=== PATIENT | male | born 1950 | race African-American/Black ===

== ENCOUNTER 2018-10-21 22:07 | Emergency (ER) | payer MEDICARE, MEDICAID ==
[~2018-10-21] VITALS: Ht 185.4 cm; Wt 53.8 kg
[~2018-10-21 22:07] MED LIST: NO HOME MEDS
[2018-10-21 22:17] VITALS: BP 157/94
== END 2018-10-22 02:22 | disposition home or self-care (01) ==
LOC: ER 22:07
DX: Z00.00 Encounter for general adult medical examination without abnormal findings (principal)
CPT/HCPCS: 99284

== ENCOUNTER 2018-10-28 12:21 | Inpatient (IN) | payer MEDICARE, MEDICAID ==
[~2018-10-28] VITALS: Ht 167.6 cm; Wt 59.8 kg
[2018-10-28 13:45] LABS: CLARITY,URINE CLEAR (Clear); COLOR,URINE YELLOW (Yellow); GLUCOSE, URINE NEGATIVE (Neg); KETONES,URINE NEGATIVE (Neg); LEUKOCYTE ESTERASE ,URINE SMALL (Neg); NITRITES, URINE NEGATIVE (Neg); OCCULT BLOOD,URINE TRACE-INTACT (Neg); PROTEIN,URINE NEGATIVE (Neg); UROBILINOGEN,URINE 0.2 E.U/dL (0.2-1.0)
[2018-10-28 13:48] LABS: UA COLLECTION TYPE CLN CATCH MIDSTREAM
[2018-10-28 13:54] LABS: SQUAMOUS EPITHELIAL CELL,UR FEW /LPF (FEW)
[2018-10-28 13:57] LABS: BACTERIA,URINE FEW /HPF (Neg); TRANSITIONAL EPI CELLS,URINE FEW /HPF; WBC CLUMPS,URINE FEW /HPF (NEGATIVE)
[2018-10-28 14:06] LABS: URINE AMPHETAMINE SCREEN NEGATIVE (Neg); URINE BARBITUATE SCREEN NEGATIVE (Neg); URINE BENZODIAZEPINES SCREEN NEGATIVE (Neg); URINE CANNABINOID SCREEN NEGATIVE (Neg); URINE COCAINE SCREEN NEGATIVE (Neg); URINE METHADONE SCREEN NEGATIVE (Neg); URINE OPIATE SCREEN NEGATIVE (Neg); URINE PHENCYCLIDINE SCREEN NEGATIVE (Neg)
[2018-10-28 14:30] LABS: BASOPHILS % (AUTO) 0.5 % (0-1); EOSINOPHILS % (AUTO) 0.6 % (0-6); HEMATOCRIT 36.7 % (42.0-52.0); HEMOGLOBIN 12.2 g/dl (14.0-17.9); LYMPHOCYTES # (AUTO) 0.6 X10'3 (1.1-4.8); LYMPHOCYTES % (AUTO) 7.2 % (21-51); MEAN CORPUSCULAR HEMOGLOBIN 31.8 PG (27.0-31.0); MEAN CORPUSCULAR HGB CONC 33.2 g/dL (33.0-36.5); MEAN CORPUSCULAR VOLUME 95.9 FL (78-98); MEAN PLATELET VOLUME 7.2 FL (7.4-10.4); MONOCYTES # (AUTO) 0.9 X10'3 (0-0.9); MONOCYTES % (AUTO) 10.1 % (2-12); NEUTROPHILS # (AUTO) 7.2 X10'3 (1.8-7.7); NEUTROPHILS % (AUTO) 81.6 % (42-75); PLATELET COUNT 401 X10'3 (140-440); RED BLOOD COUNT 3.83 X10'6 (4.70-6.10); RED CELL DISTRIBUTION WIDTH 15.3 % (11.5-14.5); WHITE BLOOD COUNT 8.8 X10'3 (4.5-11.0)
[2018-10-28 14:41] LABS: ALANINE AMINOTRANSFERASE 38 U/L (12-78); ALBUMIN 2.4 G/DL (3.4-5.0); ALBUMIN/GLOBULIN RATIO 0.5 (1.1-1.5); ALKALINE PHOSPHATASE 122 IU/L (46-116); ANION GAP 1 (8-16); ASPARTATE AMINO TRANSFERASE 32 U/L (10-37); BILIRUBIN,TOTAL 0.6 MG/DL (0.1-1.0); BLOOD UREA NITROGEN 11 MG/DL (7-18); BUN/CREATININE RATIO 14.9 (5.4-32.0); CALCIUM 8.1 MG/DL (8.5-10.1); CHLORIDE 104 MMOL/L (99-107); CREATININE 0.74 MG/DL (0.60-1.10); ETHANOL < 0.010 GM/DL (0.0-0.010); GLUCOSE 76 MG/DL (70-104); SODIUM 144 MMOL/L (135-145); TOTAL PROTEIN 7.3 G/DL (6.4-8.2); eGFR > 90 ML/MIN
[2018-10-28] MEDS ORDERED: magnesium oxide 400mg tablet PO ONE (15:05)
[2018-10-28] MEDS ORDERED: potassium Cl 20 mEq SR tablet PO ONE (15:05)
[2018-10-28] MEDS ORDERED: levoTHYROXINE 100mcg tablet PO STA (15:09)
[2018-10-28 15:28] LABS: MAGNESIUM 1.5 MG/DL (1.5-2.4)
--- NOTE | 2018-10-28 18:44 | NUR ---
Received report from THOMAS Zepeda, assumed care. Pt. resting quietly in bed, dinner given.
--- NOTE | 2018-10-28 18:45 | NUR ---
Discussed pt's labile mood with increased agitation with Dr Lorenz. Pt appears to be responding to internal stimuli AED him talking to none present, which he denies and does not appeart to recognize is occurring. [facility] psychosocial assessment pending.
[2018-10-28] MEDS ORDERED: diphenhydrAMINE 50 mg/ml inj IM ONE (19:05)
[2018-10-28] MEDS ORDERED: OLANZapine **IM** 10 mg inj. IM ONE (19:05)
[2018-10-28] MEDS ORDERED: LORazepam 2 mg/ml vial IM ONE (19:05)
--- NOTE | 2018-10-28 21:26 | NUR ---
pt. given zyprexa IM as requested by pt. to" help him sleep". pt. is cooperative and calm, laying supine in bed with rails up and in low position. Pt. ate 20% of meal stating "I cant eat that I cant see it". Requested that meal tray be left at bedside to eat later.
--- NOTE | 2018-10-28 22:44 | NUR ---
pt resting quietly in bed with eyes closed. breathing even and unlabored. regularly wakes up and asks for urinal and states he can't see it. urinal handed to pt.
--- NOTE | 2018-10-29 02:28 | NUR ---
pt laying on right side with eyes closed. breathing even and nonlabored. will monitor.
--- NOTE | 2018-10-29 04:45 | NUR ---
pt. laying on bed with eys closed. head of bead elevated 30 degrees as pt. requests. NAD noted.
[2018-10-29] MEDS ORDERED: levoTHYROXINE 25mcg tablet PO SCH (07:00)
--- NOTE | 2018-10-29 07:34 | NUR ---
PT SLEEPING, WILL NOT WAKEN FOR AM SYNTHROID DOSE, WILL GIVE WHEN PT AWAKENS
[2018-10-29] MEDS: potassium Cl 20 mEq SR tablet PO SCH (08:37)
--- NOTE | 2018-10-29 13:30 | NUR ---
pt was assisted out of bed for a bedbath and linen change, became short of breath, dyspneic. pt's o2 sat was as low as 70% on ra with a heart rate of 115. o2 placed as soon as o2 bottle was obtained, 2 lpm. sat had come up to 88-89% on ra with hr of 109. sat 93% on 2 liters o2. was notified, came to eval pt and placed orders
[2018-10-29] MEDS ORDERED: ipratropium/albuterol 3ml nebule NEB ONE (13:35)
--- NOTE | 2018-10-29 13:35 | NUR ---
pt also developed moist, non-productive cough. ambulated to foot of bed before c/o difficulty breathing, approx 4 ft
--- NOTE | 2018-10-29 14:13 | NUR ---
respiratory therapist at bedside for breathing tx, ekg being done. line was placed for cta and labs drawn
[2018-10-29] MEDS ORDERED: iohexol 350MG/ML 100ml bottle IV ONE (14:53)
--- NOTE | 2018-10-29 15:18 | NUR ---
pt back from cta scan, went via w/c, accompanied by rn. became sob with transfer to ct table
[2018-10-29] MEDS ORDERED: furosemide 10 MG/1 ML 10ml inj IV ONE (15:50)
--- NOTE | 2018-10-29 15:55 | NUR ---
pt is to be admitted for chf, per er md. pt not cooperative with all care
[2018-10-29] MEDS ORDERED: POTA20TA19 PO (16:04)
[2018-10-29] MEDS ORDERED: LEVO50TA PO (16:04)
--- NOTE | 2018-10-29 16:30 | NUR ---
pt voiding 100-150 cc at a time. bladder scan done to r/o retention, residual was 155 cc after 125 cc void.
--- NOTE | 2018-10-29 17:16 | NUR ---
dr macias was in to see pt, was notified of bladder scan results. pt being admitted, awaiting orders
--- NOTE | 2018-10-29 17:17 | NUR ---
it help desk technician was at bedside to attempt echo, but pt would not be still long enough to do test, voiding very frequently . echo will be attempted again in the am
[2018-10-29 17:24] LABS: POTASSIUM 3.8 MMOL/L (3.5-5.1)
[2018-10-29 17:30] LABS: ABG BASE EXCESS 11.7 mmol/L (-2.0-3.0); ABG HCO3 38.1 mmol/L (22.0-26.0); ABG OXYGEN SATURATION 88.4 % (95-98); ABG PCO2 (T) 57.5 mmHg (35.0-48.0); ABG PH (T) 7.439 (7.350-7.450); ABG PO2 (T) 53.5 mmHg (83-108); ALLEN'S TEST Positive; FCOHb 2.1 % (0.5-1.5); FLOW 2 L/min; FMetHb 0.1 % (0.3-1.12); FO2Hb 86.5 % (94-100); TOTAL HEMOGLOBIN 13.3 G/dl (14.0-18.0)
[2018-10-29] MEDS ORDERED: potassium Cl 20 mEq SR tablet PO PRN ×2 (17:40)
[2018-10-29] MEDS ORDERED: ondansetron/PF 4mg/2ml inj IV PRN (17:40)
[2018-10-29] MEDS ORDERED: potassium Cl 40MEQ/NS 500ml 500 ML IV PRN ×2 (17:40)
[2018-10-29] MEDS ORDERED: morphine 4 MG/ML inj SYRINge IV PRN (17:40)
[2018-10-29] MEDS ORDERED: magnesium 2GM in 50ml NS 50 ML IV PRN (17:40)
[2018-10-29] MEDS ORDERED: acetaminophen 325mg tablet PO PRN ×2 (17:40)
[2018-10-29] MEDS ORDERED: magnesium 4gm in 100ml NS 100 ML IV PRN (17:40)
[2018-10-29] MEDS ORDERED: magnesium hydroxide 30ml (MOM) UD suspension PO PRN (17:40)
[2018-10-29] MEDS ORDERED: magnesium Cl slow-release 64mg tablet PO PRN (17:40)
[2018-10-29] MEDS ORDERED: mag hydrox/Alum hydrox/simeth 30ml oral suspension PO PRN (17:40)
[2018-10-29] MEDS: hydrocortisone 2.5% cream 28.4gm TP SCH (19:44)
[2018-10-29] MEDS: heparin, porcine 5000 units/ml vial SQ SCH (19:46)
--- NOTE | 2018-10-29 19:56 | NUR ---
pt resting in bed on 2liters of oxygen. no s/s of distress or pain. pt refused heparin dose. education printed and at bedside. pt accepted cream to leg. pt educated on the importance of heparin, and still pt refused.
[2018-10-29] MEDS ORDERED: albuterol 2.5 MG/3 ML nebule NEB SCH (20:00)
--- NOTE | 2018-10-29 20:36 | NUR ---
PT MOVED TO BED 10 IN MAIN ED WHILE AWAITING ROOM. PT MOVED IN WHEELCHAIR BY GIRMA ESPARZA.
--- NOTE | 2018-10-29 20:40 | NUR ---
PT PLACED ON HOSPITAL BED FOR COMFORT
--- NOTE | 2018-10-30 01:25 | NUR ---
Discussed Albuterol Neb order with Dr Presley as pt is asleep. Per MD change order to Q4H PRN to start @ 0700 to allow pt much needed sleep.
[2018-10-30] MEDS ORDERED: albuterol 2.5 MG/3 ML nebule NEB PRN (07:00)
[2018-10-30] MEDS: levoTHYROXINE 25mcg tablet PO SCH (07:30)
[2018-10-30] MEDS: potassium Cl 20 mEq SR tablet PO SCH (07:31)
[2018-10-30] MEDS: heparin, porcine 5000 units/ml vial SQ SCH ×2 (07:36→19:56)
[2018-10-30] MEDS: CefTRIAXone 2gm/D5W 50ml 50 ML IV SCH (07:37)
[2018-10-30] MEDS ORDERED: non-formulary drug (Levothyroxine Sodium (Synthroid) 1 TAB) PO SCH (08:00)
[2018-10-30 08:10] LABS: BASOPHILS # (AUTO) 0.1 X10'3 (0-0.2); BASOPHILS % (AUTO) 1.4 % (0-1); EOSINOPHILS # (AUTO) 0.2 X10'3 (0-0.9); EOSINOPHILS % (AUTO) 2.6 % (0-6); HEMATOCRIT 36.9 % (42.0-52.0); HEMOGLOBIN 11.9 g/dl (14.0-17.9); LYMPHOCYTES # (AUTO) 1.4 X10'3 (1.1-4.8); LYMPHOCYTES % (AUTO) 21.6 % (21-51); MEAN CORPUSCULAR HEMOGLOBIN 31.4 PG (27.0-31.0); MEAN CORPUSCULAR HGB CONC 32.3 g/dL (33.0-36.5); MEAN CORPUSCULAR VOLUME 97.3 FL (78-98); MONOCYTES % (AUTO) 15.1 % (2-12); NEUTROPHILS # (AUTO) 3.8 X10'3 (1.8-7.7); NEUTROPHILS % (AUTO) 59.3 % (42-75); PLATELET COUNT 430 X10'3 (140-440); RED BLOOD COUNT 3.79 X10'6 (4.70-6.10); RED CELL DISTRIBUTION WIDTH 15.8 % (11.5-14.5); WHITE BLOOD COUNT 6.5 X10'3 (4.5-11.0)
[2018-10-30 08:14] LABS: ALBUMIN 2.2 G/DL (3.4-5.0); ANION GAP -1 (8-16); BLOOD UREA NITROGEN 14 MG/DL (7-18); BUN/CREATININE RATIO 18.2 (5.4-32.0); CALCIUM 8.1 MG/DL (8.5-10.1); CHLORIDE 104 MMOL/L (99-107); CREATININE 0.77 MG/DL (0.60-1.10); GLUCOSE 89 MG/DL (70-104); MAGNESIUM 1.4 MG/DL (1.5-2.4); POTASSIUM 3.3 MMOL/L (3.5-5.1); SODIUM 143 MMOL/L (135-145); TOTAL CARBON DIOXIDE 39.8 MMOL/L (24-32); eGFR > 90 ML/MIN
--- NOTE | 2018-10-30 10:10 | NUR ---
PT WHEEZING RT CALLED FOR TX
--- NOTE | 2018-10-30 12:41 | NUR ---
pt pulled iv out.
[2018-10-30] MEDS ORDERED: POTA20TA19 PO (14:36)
[2018-10-30] MEDS ORDERED: HYDR453.3 TP (14:36)
[2018-10-30] MEDS ORDERED: LEVO50TA PO (14:36)
--- NOTE | 2018-10-30 18:13 | NUR ---
Received report from THOMAS Gallegos and THOMAS Heart. Patient pulled IV out at 1241 earlier today. THOMAS Heart said she will try putting an IV in before bringing patient up. Awaiting patient arrival to the floor.
[2018-10-30] MEDS: hydrocortisone 2.5% cream 28.4gm TP SCH ×2 (18:43→19:56)
[2018-10-30] MEDS: K and/or MAG REPLACEMENT MC SCH (18:43)
[2018-10-30 19:00] VITALS: BP 129/71
--- NOTE | 2018-10-30 19:00 | NUR ---
Patient arrived to the floor via bed, placed in room 356B. Patient is awake and alert on 2 L NC, in no apparent distress. Call light and items of frequent use within reach. Will continue to monitor.
[2018-10-30] MEDS: lactobacillus rhamnosus 10,000 MMU CELLS/CAPSULE PO SCH (19:55)
--- NOTE | 2018-10-30 20:25 | NUR ---
Patient refused orthostatic vitals. Stated "I cant stand up! Leave me alone."
--- NOTE | 2018-10-30 21:48 | NUR ---
Patient refused to allow respiratory assessment. No service provided.
--- NOTE | 2018-10-30 22:17 | NUR ---
Patient refused to answer DART questions; stated "This is my sleep time. I need to be left alone."
[2018-10-31] VITALS: BP 102/64
[2018-10-31] MEDS: temazepam 15mg capsule PO PRN (01:31)
--- NOTE | 2018-10-31 04:45 | NUR ---
Attempted to perform nasal swab and DART process - swung arms at me and refused to cooperate.
[2018-10-31 05:17] LABS: BASOPHILS # (AUTO) 0.1 X10'3 (0-0.2); BASOPHILS % (AUTO) 1.1 % (0-1); EOSINOPHILS # (AUTO) 0.1 X10'3 (0-0.9); EOSINOPHILS % (AUTO) 2.4 % (0-6); HEMATOCRIT 34.5 % (42.0-52.0); HEMOGLOBIN 11.3 g/dl (14.0-17.9); LYMPHOCYTES # (AUTO) 1.4 X10'3 (1.1-4.8); LYMPHOCYTES % (AUTO) 24.8 % (21-51); MEAN CORPUSCULAR HEMOGLOBIN 31.7 PG (27.0-31.0); MEAN CORPUSCULAR HGB CONC 32.8 g/dL (33.0-36.5); MEAN CORPUSCULAR VOLUME 96.6 FL (78-98); MEAN PLATELET VOLUME 7.3 FL (7.4-10.4); MONOCYTES # (AUTO) 0.9 X10'3 (0-0.9); NEUTROPHILS # (AUTO) 3.2 X10'3 (1.8-7.7); NEUTROPHILS % (AUTO) 55.7 % (42-75); PLATELET COUNT 393 X10'3 (140-440); RED BLOOD COUNT 3.56 X10'6 (4.70-6.10); RED CELL DISTRIBUTION WIDTH 15.6 % (11.5-14.5); WHITE BLOOD COUNT 5.7 X10'3 (4.5-11.0)
[2018-10-31 05:28] LABS: ALBUMIN 2.3 G/DL (3.4-5.0); ANION GAP -2 (8-16); BLOOD UREA NITROGEN 19 MG/DL (7-18); BUN/CREATININE RATIO 24.4 (5.4-32.0); CHLORIDE 103 MMOL/L (99-107); CREATININE 0.78 MG/DL (0.60-1.10); GLUCOSE 97 MG/DL (70-104); MAGNESIUM 2.1 MG/DL (1.5-2.4); SODIUM 139 MMOL/L (135-145); TOTAL CARBON DIOXIDE 37.8 MMOL/L (24-32); eGFR > 90 ML/MIN
--- NOTE | 2018-10-31 06:24 | NUR ---
Problems reprioritized. Patient report given, questions answered & plan of care reviewed with THOMAS Shell.
--- NOTE | 2018-10-31 06:35 | NUR ---
Patient in room [facility]ELV[facility] 356. I have received report from Sumaya and had the opportunity to ask questions and assume patient care.
[2018-10-31 08:00] VITALS: BP 113/73
[2018-10-31] MEDS: K and/or MAG REPLACEMENT MC SCH (08:00)
[2018-10-31] MEDS: levoTHYROXINE 25mcg tablet PO SCH (08:14)
[2018-10-31] MEDS: potassium Cl 20 mEq SR tablet PO SCH (08:16)
[2018-10-31] MEDS: lactobacillus rhamnosus 10,000 MMU CELLS/CAPSULE PO SCH ×2 (08:16→20:07)
[2018-10-31] MEDS: heparin, porcine 5000 units/ml vial SQ SCH ×2 (08:18→20:07)
[2018-10-31] MEDS: hydrocortisone 2.5% cream 28.4gm TP SCH ×2 (08:19→20:00)
[2018-10-31] MEDS: CefTRIAXone 2gm/D5W 50ml 50 ML IV SCH (10:33)
[2018-10-31] MEDS: OLANZapine 2.5MG tablet PO SCH ×2 (11:40→16:44)
--- NOTE | 2018-10-31 12:18 | NUR ---
Problems reprioritized. Patient report given, questions answered & plan of care reviewed with
--- NOTE | 2018-10-31 12:22 | NUR ---
Student documentation: I have reviewed and agree with all interventions, assessments performed and documented by Wendy, nursing service administrator.
--- NOTE | 2018-10-31 12:22 | NUR ---
Student Medication Administration: For this medication-pass time frame, all medication were reviewed, dispensed, administered and documented per hospital policy by vira Nguyen.
--- NOTE | 2018-10-31 14:21 | NUR ---
Positive blood cultures right hand gram positive cocci and clusters. Page sent to Dr Daugherty.
--- NOTE | 2018-10-31 14:23 | NUR ---
Patient refused zyprexa earlier, Dr Daugehrty paged with this information. Patient yells at times.
[2018-10-31] MEDS ORDERED: OLANZapine **IM** 10 mg inj. IM PRN (17:25)
[2018-10-31] MEDS ORDERED: LORazepam 2 mg/ml vial IV PRN (17:25)
--- NOTE | 2018-10-31 18:00 | NUR ---
Problems reprioritized. Patient report given, questions answered & plan of care reviewed with Mary Jane GUZMAN
--- NOTE | 2018-10-31 18:05 | NUR ---
Received report from THOMAS Shell. Patient is resting comfortably on room air, in no apparent distress. Call light and items of frequent use within reach. Will continue to monitor.
--- NOTE | 2018-10-31 19:20 | NUR ---
Refused respiratory assessment.
[2018-10-31 20:00] VITALS: BP 110/70
--- NOTE | 2018-10-31 20:35 | NUR ---
Patient pulled IV out within 10 minutes of putting one in; and said "I don't want this fucking thing."
[2018-11-01] VITALS: BP 128/80
[2018-11-01 05:56] LABS: BASOPHILS % (AUTO) 0.2 % (0-1); EOSINOPHILS # (AUTO) 0.1 X10'3 (0-0.9); EOSINOPHILS % (AUTO) 2.5 % (0-6); HEMATOCRIT 33.8 % (42.0-52.0); HEMOGLOBIN 11.5 g/dl (14.0-17.9); LYMPHOCYTES # (AUTO) 1.4 X10'3 (1.1-4.8); LYMPHOCYTES % (AUTO) 26.9 % (21-51); MEAN CORPUSCULAR HEMOGLOBIN 32.6 PG (27.0-31.0); MEAN CORPUSCULAR HGB CONC 34.2 g/dL (33.0-36.5); MEAN CORPUSCULAR VOLUME 95.5 FL (78-98); MEAN PLATELET VOLUME 7.4 FL (7.4-10.4); NEUTROPHILS # (AUTO) 2.8 X10'3 (1.8-7.7); NEUTROPHILS % (AUTO) 52.4 % (42-75); PLATELET COUNT 395 X10'3 (140-440); RED BLOOD COUNT 3.54 X10'6 (4.70-6.10); RED CELL DISTRIBUTION WIDTH 15.6 % (11.5-14.5); WHITE BLOOD COUNT 5.3 X10'3 (4.5-11.0)
[2018-11-01 06:03] LABS: ALBUMIN 2.3 G/DL (3.4-5.0); ANION GAP 2 (8-16); BLOOD UREA NITROGEN 17 MG/DL (7-18); BUN/CREATININE RATIO 23.3 (5.4-32.0); CALCIUM 8.4 MG/DL (8.5-10.1); CHLORIDE 104 MMOL/L (99-107); CREATININE 0.73 MG/DL (0.60-1.10); GLUCOSE 106 MG/DL (70-104); MAGNESIUM 1.7 MG/DL (1.5-2.4); POTASSIUM 4.2 MMOL/L (3.5-5.1); SODIUM 140 MMOL/L (135-145); TOTAL CARBON DIOXIDE 34.5 MMOL/L (24-32); eGFR > 90 ML/MIN
--- NOTE | 2018-11-01 06:40 | NUR ---
Patient in room [facility] 356. I have received report from Mary Jane GUZMAN and had the opportunity to ask questions and assume patient care.
--- NOTE | 2018-11-01 06:42 | NUR ---
Problems reprioritized. Patient report given, questions answered & plan of care reviewed with THOMAS Spears and Marck Student Nurse.
--- NOTE | 2018-11-01 07:00 | NUR ---
Patient pulled IV out on third shift lieutenant. Patient refusing to have IV placed. MD paged to notify. Awaiting call back.
[2018-11-01 07:06] VITALS: BP 133/87
[2018-11-01] MEDS: K and/or MAG REPLACEMENT MC SCH (07:17)
[2018-11-01] MEDS: lactobacillus rhamnosus 10,000 MMU CELLS/CAPSULE PO SCH ×2 (07:31→20:22)
[2018-11-01] MEDS: levoTHYROXINE 25mcg tablet PO SCH (07:31)
[2018-11-01] MEDS: potassium Cl 20 mEq SR tablet PO SCH (07:31)
[2018-11-01] MEDS: HYDROcodone/acetaminophen 5mg/325mg tablet PO PRN ×3 (07:31→20:21)
[2018-11-01] MEDS: heparin, porcine 5000 units/ml vial SQ SCH ×2 (07:32→20:19)
[2018-11-01] MEDS: OLANZapine 2.5MG tablet PO SCH (07:32)
[2018-11-01] MEDS: CefTRIAXone 2gm/D5W 50ml 50 ML IV SCH (08:00)
[2018-11-01] MEDS: hydrocortisone 2.5% cream 28.4gm TP SCH ×2 (08:00→20:00)
--- NOTE | 2018-11-01 09:00 | NUR ---
paged again to notify of refusal of IV placement and has IV antibiotics due. Awaiting call back.
[2018-11-01] MEDS ORDERED: VANCOMYCIN 750MG IV in NS 250 ML IV SCH (10:00)
[2018-11-01 11:40] VITALS: BP 120/85
--- NOTE | 2018-11-01 11:57 | NUR ---
Dr. Hector aware of pt refusing IV placement. to speak with pt.
[2018-11-01] MEDS ORDERED: CefTRIAXone 2gm/D5W 50ml 50 ML IV ONE (13:45)
[2018-11-01] MEDS: VANCOMYCIN 750MG IV in NS 250 ML IV SCH (15:11)
--- NOTE | 2018-11-01 18:03 | NUR ---
Problems reprioritized. Patient report given, questions answered & plan of care reviewed with Mary Jane GUZMAN.
--- NOTE | 2018-11-01 18:15 | NUR ---
Patient in room [facility] 356. I have received report from Mary Jane GUZMAN and had the opportunity to ask questions and assume patient care.
--- NOTE | 2018-11-01 18:15 | NUR ---
Patient in room [facility] 356. I have received report from Mary Jane UGZMAN and had the opportunity to ask questions and assume patient care.
--- NOTE | 2018-11-01 18:22 | NUR ---
Problems reprioritized. Patient report given, questions answered & plan of care reviewed with Mary Jane GUZMAN.
--- NOTE | 2018-11-01 18:23 | NUR ---
Student documentation: I have reviewed and agree with all interventions, assessments performed and documented by Marck Student Nurse. Student Medication Administration: For this medication-pass time frame, all medication were reviewed, dispensed, administered and documented per hospital policy by Marck Bear Nurse.
--- NOTE | 2018-11-01 18:30 | NUR ---
Received report from THOMAS Spears. Patient resting comfortably with eyes closed. Reported off to THOMAS Abreu.
[2018-11-01 19:00] VITALS: BP 144/97
[2018-11-01] MEDS: temazepam 15mg capsule PO PRN (23:15)
[2018-11-02] VITALS: BP 130/83
[2018-11-02] MEDS: VANCOMYCIN 750MG IV in NS 250 ML IV SCH (01:49)
[2018-11-02] MEDS: HYDROcodone/acetaminophen 5mg/325mg tablet PO PRN ×3 (01:57→20:57)
--- NOTE | 2018-11-02 06:30 | NUR ---
Problems reprioritized. Patient report given, questions answered & plan of care reviewed with Jules Prescott.
[2018-11-02 06:45] LABS: BASOPHILS % (AUTO) 0.3 % (0-1); EOSINOPHILS # (AUTO) 0.2 X10'3 (0-0.9); EOSINOPHILS % (AUTO) 4.4 % (0-6); HEMATOCRIT 35.3 % (42.0-52.0); HEMOGLOBIN 11.7 g/dl (14.0-17.9); LYMPHOCYTES # (AUTO) 1.7 X10'3 (1.1-4.8); LYMPHOCYTES % (AUTO) 37.5 % (21-51); MEAN CORPUSCULAR HGB CONC 33.1 g/dL (33.0-36.5); MEAN CORPUSCULAR VOLUME 96.7 FL (78-98); MEAN PLATELET VOLUME 7.5 FL (7.4-10.4); MONOCYTES % (AUTO) 21.8 % (2-12); NEUTROPHILS # (AUTO) 1.7 X10'3 (1.8-7.7); PLATELET COUNT 392 X10'3 (140-440); RED BLOOD COUNT 3.65 X10'6 (4.70-6.10); RED CELL DISTRIBUTION WIDTH 15.5 % (11.5-14.5); WHITE BLOOD COUNT 4.7 X10'3 (4.5-11.0)
--- NOTE | 2018-11-02 06:55 | NUR ---
Patient in room [facility] 356. I have received report from Lois GUZMAN and had the opportunity to ask questions and assume patient care.
[2018-11-02 06:58] LABS: ALBUMIN 2.3 G/DL (3.4-5.0); ANION GAP 4 (8-16); BLOOD UREA NITROGEN 16 MG/DL (7-18); BUN/CREATININE RATIO 25.4 (5.4-32.0); CALCIUM 8.5 MG/DL (8.5-10.1); CHLORIDE 105 MMOL/L (99-107); CREATININE 0.63 MG/DL (0.60-1.10); GLUCOSE 77 MG/DL (70-104); MAGNESIUM 1.6 MG/DL (1.5-2.4); POTASSIUM 4.3 MMOL/L (3.5-5.1); SODIUM 141 MMOL/L (135-145); eGFR > 90 ML/MIN
[2018-11-02 07:00] VITALS: BP 120/78
[2018-11-02] MEDS: K and/or MAG REPLACEMENT MC SCH (08:00)
[2018-11-02] MEDS: CefTRIAXone 2gm/D5W 50ml 50 ML IV SCH (08:15)
[2018-11-02] MEDS: OLANZapine 2.5MG tablet PO SCH (08:16)
[2018-11-02] MEDS: potassium Cl 20 mEq SR tablet PO SCH (08:16)
[2018-11-02] MEDS: lactobacillus rhamnosus 10,000 MMU CELLS/CAPSULE PO SCH ×2 (08:16→20:54)
[2018-11-02] MEDS: levoTHYROXINE 25mcg tablet PO SCH (08:16)
[2018-11-02] MEDS: heparin, porcine 5000 units/ml vial SQ SCH ×2 (08:17→20:56)
--- NOTE | 2018-11-02 08:55 | NUR ---
Patient pulled out his peripheral IV catheter after inserted a new peripheral IV catheter this am. Rocephin IV infusion was not completed. Will try inserting new IV again.
[2018-11-02] MEDS ORDERED: CEFD300C3 PO (09:20)
--- NOTE | 2018-11-02 10:49 | NUR ---
Patient refusing insertion of another peripheral IV catheter at this time. senior engineering manager Justina and Bucket Hooker Iris notified about the discharge order received from Dr. Hector stating that patient is medically cleared
--- NOTE | 2018-11-02 11:16 | NUR ---
Patient refused vital signs check. Sitter at bedside
[2018-11-02] MEDS: hydrocortisone 2.5% cream 28.4gm TP SCH ×2 (11:25→20:56)
--- NOTE | 2018-11-02 11:34 | NUR ---
Dr. Hector notified about patient has been pulling his IV. He said its fine Addendum: 11/02/18 at 1657 by Jules Humphrey RN Dr. Hector was aware that patient has no peripheral IV catheter
--- NOTE | 2018-11-02 18:26 | NUR ---
Problems reprioritized. Patient report given, questions answered & plan of care reviewed with Lois GUZMAN.
--- NOTE | 2018-11-02 18:30 | NUR ---
Patient in room [facility] 356. I have received report from Jules GUZMAN and had the opportunity to ask questions and assume patient care.
[2018-11-02 19:00] VITALS: BP 117/68
[2018-11-03] VITALS: BP 120/78
[2018-11-03] MEDS: temazepam 15mg capsule PO PRN (00:58)
[2018-11-03] MEDS ORDERED: VANCOMYCIN LEVEL IV ONE (01:30)
[2018-11-03] MEDS: HYDROcodone/acetaminophen 5mg/325mg tablet PO PRN ×2 (02:57→21:30)
--- NOTE | 2018-11-03 06:13 | NUR ---
Problems reprioritized. Patient report given, questions answered & plan of care reviewed with Jules GUZMAN.
--- NOTE | 2018-11-03 06:18 | NUR ---
Patient in room [facility] 356. I have received report from Lois GUZMAN and had the opportunity to ask questions and assume patient care.
[2018-11-03 06:34] LABS: BASOPHILS % (AUTO) 0.4 % (0-1); EOSINOPHILS # (AUTO) 0.2 X10'3 (0-0.9); EOSINOPHILS % (AUTO) 4.8 % (0-6); HEMATOCRIT 35.1 % (42.0-52.0); HEMOGLOBIN 11.5 g/dl (14.0-17.9); LYMPHOCYTES # (AUTO) 1.7 X10'3 (1.1-4.8); MEAN CORPUSCULAR HEMOGLOBIN 31.4 PG (27.0-31.0); MEAN CORPUSCULAR HGB CONC 32.7 g/dL (33.0-36.5); MEAN PLATELET VOLUME 7.2 FL (7.4-10.4); MONOCYTES # (AUTO) 0.8 X10'3 (0-0.9); MONOCYTES % (AUTO) 19.4 % (2-12); NEUTROPHILS # (AUTO) 1.6 X10'3 (1.8-7.7); NEUTROPHILS % (AUTO) 36.4 % (42-75); PLATELET COUNT 350 X10'3 (140-440); RED BLOOD COUNT 3.66 X10'6 (4.70-6.10); RED CELL DISTRIBUTION WIDTH 15.7 % (11.5-14.5); WHITE BLOOD COUNT 4.4 X10'3 (4.5-11.0)
[2018-11-03 06:50] LABS: ALBUMIN 2.3 G/DL (3.4-5.0); ANION GAP 1 (8-16); BLOOD UREA NITROGEN 16 MG/DL (7-18); BUN/CREATININE RATIO 23.2 (5.4-32.0); CALCIUM 8.3 MG/DL (8.5-10.1); CHLORIDE 105 MMOL/L (99-107); CREATININE 0.69 MG/DL (0.60-1.10); GLUCOSE 84 MG/DL (70-104); MAGNESIUM 1.6 MG/DL (1.5-2.4); SODIUM 139 MMOL/L (135-145); TOTAL CARBON DIOXIDE 33.4 MMOL/L (24-32); eGFR > 90 ML/MIN
[2018-11-03 07:00] VITALS: BP 117/73
[2018-11-03 07:05] LABS: PLATELET ESTIMATE NORMAL; SCHISTOCYTES FEW
[2018-11-03] MEDS: CefTRIAXone 2gm/D5W 50ml 50 ML IV SCH (08:00)
[2018-11-03] MEDS: K and/or MAG REPLACEMENT MC SCH (08:00)
[2018-11-03] MEDS: lactobacillus rhamnosus 10,000 MMU CELLS/CAPSULE PO SCH ×2 (08:06→21:30)
[2018-11-03] MEDS: levoTHYROXINE 25mcg tablet PO SCH (08:06)
[2018-11-03] MEDS: heparin, porcine 5000 units/ml vial SQ SCH ×2 (08:07→20:00)
[2018-11-03] MEDS: OLANZapine 2.5MG tablet PO SCH (08:09)
[2018-11-03] MEDS: potassium Cl 20 mEq SR tablet PO SCH (08:09)
[2018-11-03] MEDS: hydrocortisone 2.5% cream 28.4gm TP SCH ×2 (08:10→20:00)
[2018-11-03 12:00] VITALS: BP 125/80
--- NOTE | 2018-11-03 13:43 | NUR ---
Initial: Pt admit on 515 hold r/t psychosis; hold now cleared per MD note. PO 25-50% avg regular meals w/ ensure enlive TID per MD; PO fluctuates w/ 100% prior intake. LBM 11/01. Receiving electrolyte replacement per protocol. Will continue to monitor. Rec: 1. continue regular diet 2. ensure enlive TIDWM per MD 3. wt per rx Addendum: 11/03/18 at [address] Amended: Links added.
[2018-11-03] MEDS: cefuroxime axetil 250mg tablet PO SCH ×2 (14:26→21:30)
--- NOTE | 2018-11-03 18:03 | NUR ---
Shawna [facility] staff and myself found lice on patient's hair and bed. Charge nurse Zonia notified immediately. Dr. Hector notified via paging system. Contact isolation precaution started
--- NOTE | 2018-11-03 18:30 | NUR ---
Patient in room [facility] 356. I have received report from THOMAS Vicente and had the opportunity to ask questions and assume patient care. Addendum: 11/04/18 at 0139 by Malka Vazquez RN Amended: Links added.
[2018-11-03] MEDS ORDERED: Permethrin Cream 60gm TP ONE (18:35)
[2018-11-03] MEDS ORDERED: Permethrin 1% 59ml topical rinse TP ONE (18:35)
--- NOTE | 2018-11-03 18:39 | NUR ---
Problems reprioritized. Patient report given, questions answered & plan of care reviewed with Karlee GUZMAN.
[2018-11-03 19:00] VITALS: BP 126/83
[2018-11-03] MEDS: mineral oil/petrolatum, white cream 113gm jar TP SCH (20:00)
--- NOTE | 2018-11-03 21:30 | NUR ---
refuses to have pupils, mouth assessed. Addendum: 11/04/18 at 0157 by Malka Vazquez RN Amended: Links added.
[2018-11-03 23:30] VITALS: BP 114/77
[2018-11-04] MEDS ORDERED: Permethrin 1% 59ml topical rinse TP ONE (06:00)
--- NOTE | 2018-11-04 07:09 | NUR ---
Problems reprioritized. Patient report given, questions answered & plan of care reviewed with THOMAS Aguirre. Addendum: 11/04/18 at 0709 by Malka Vazquez RN Amended: Links added.
--- NOTE | 2018-11-04 07:09 | NUR ---
Patient in room [facility] 356. I have received report from SUSAN GUZMAN and had the opportunity to ask questions and assume patient care.
[2018-11-04 07:29] VITALS: BP 120/80
[2018-11-04] MEDS: hydrocortisone 2.5% cream 28.4gm TP SCH ×2 (08:00→19:06)
[2018-11-04] MEDS: K and/or MAG REPLACEMENT MC SCH (08:00)
[2018-11-04] MEDS: heparin, porcine 5000 units/ml vial SQ SCH ×2 (08:00→19:06)
[2018-11-04] MEDS: mineral oil/petrolatum, white cream 113gm jar TP SCH ×2 (08:00→19:06)
[2018-11-04] MEDS: HYDROcodone/acetaminophen 5mg/325mg tablet PO PRN ×2 (08:58→19:09)
[2018-11-04] MEDS: levoTHYROXINE 25mcg tablet PO SCH (08:58)
[2018-11-04] MEDS: lactobacillus rhamnosus 10,000 MMU CELLS/CAPSULE PO SCH ×2 (08:58→19:06)
[2018-11-04] MEDS: OLANZapine 2.5MG tablet PO SCH (08:58)
[2018-11-04] MEDS: cefuroxime axetil 250mg tablet PO SCH ×2 (08:59→19:05)
[2018-11-04] MEDS: potassium Cl 20 mEq SR tablet PO SCH (09:02)
[2018-11-04 11:00] VITALS: BP 127/82
[2018-11-04] MEDS ORDERED: morphine 2 MG/ML inj. syringe IV PRN (15:33)
[2018-11-04 18:00] VITALS: BP 118/75
--- NOTE | 2018-11-04 18:26 | NUR ---
Problems reprioritized. Patient report given, questions answered & plan of care reviewed with Julio GUZMAN.
--- NOTE | 2018-11-04 18:31 | NUR ---
Patient in room [facility]ELVINA 359. I have received report from Carla GUZMAN and had the opportunity to ask questions and assume patient care. Addendum: 11/04/18 at 1832 by Bravo Triana RN Correction. Pt is in room 356 b
[2018-11-04] MEDS: temazepam 15mg capsule PO PRN (19:09)
[2018-11-05] VITALS: BP 116/75
--- NOTE | 2018-11-05 05:15 | NUR ---
Patient lies on bare plastic of his bed mattress. Pt refuses to have sheets put down underneath him.
--- NOTE | 2018-11-05 06:30 | NUR ---
Patient in room [facility] 356. I have received report from THOMAS Kim and had the opportunity to ask questions and assume patient care.
--- NOTE | 2018-11-05 06:33 | NUR ---
Problems reprioritized. Patient report given, questions answered & plan of care reviewed with Katie GUZMAN.
[2018-11-05] MEDS: potassium Cl 20 mEq SR tablet PO SCH (07:20)
[2018-11-05] MEDS: OLANZapine 2.5MG tablet PO SCH (07:20)
[2018-11-05] MEDS: lactobacillus rhamnosus 10,000 MMU CELLS/CAPSULE PO SCH ×2 (07:20→19:09)
[2018-11-05] MEDS: cefuroxime axetil 250mg tablet PO SCH ×2 (07:20→19:09)
[2018-11-05] MEDS: HYDROcodone/acetaminophen 5mg/325mg tablet PO PRN ×3 (07:21→23:55)
[2018-11-05] MEDS: levoTHYROXINE 25mcg tablet PO SCH (07:21)
[2018-11-05] MEDS: heparin, porcine 5000 units/ml vial SQ SCH ×2 (07:21→19:09)
[2018-11-05] MEDS: mineral oil/petrolatum, white cream 113gm jar TP SCH ×2 (07:31→19:11)
[2018-11-05] MEDS: hydrocortisone 2.5% cream 28.4gm TP SCH ×2 (07:31→20:00)
[2018-11-05 07:44] VITALS: BP 118/70
[2018-11-05] MEDS: K and/or MAG REPLACEMENT MC SCH (08:00)
[2018-11-05 11:30] VITALS: BP 109/78
[2018-11-05 18:00] VITALS: BP 114/77
--- NOTE | 2018-11-05 18:14 | NUR ---
Problems reprioritized. Patient report given, questions answered & plan of care reviewed with THOMAS Kim.
--- NOTE | 2018-11-05 18:30 | NUR ---
Patient in room [facility] 356. I have received report from Katie GUZMAN and had the opportunity to ask questions and assume patient care. Bed alarm is on.
[2018-11-05] MEDS: temazepam 15mg capsule PO PRN ×2 (21:49→23:53)
[2018-11-06] VITALS: BP 116/74
--- NOTE | 2018-11-06 06:11 | NUR ---
Patient in room [facility] 356. I have received report from THOMAS Kim and had the opportunity to ask questions and assume patient care.
--- NOTE | 2018-11-06 06:12 | NUR ---
Problems reprioritized. Patient report given, questions answered & plan of care reviewed with Katie GUZMAN.
[2018-11-06] MEDS: heparin, porcine 5000 units/ml vial SQ SCH ×2 (07:24→20:59)
[2018-11-06] MEDS: levoTHYROXINE 25mcg tablet PO SCH (07:24)
[2018-11-06] MEDS: OLANZapine 2.5MG tablet PO SCH (07:24)
[2018-11-06] MEDS: lactobacillus rhamnosus 10,000 MMU CELLS/CAPSULE PO SCH ×2 (07:24→20:59)
[2018-11-06] MEDS: potassium Cl 20 mEq SR tablet PO SCH (07:24)
[2018-11-06] MEDS: mineral oil/petrolatum, white cream 113gm jar TP SCH ×2 (07:25→21:03)
[2018-11-06] MEDS: cefuroxime axetil 250mg tablet PO SCH ×2 (07:25→21:00)
[2018-11-06] MEDS: hydrocortisone 2.5% cream 28.4gm TP SCH ×2 (07:26→21:03)
[2018-11-06 07:30] VITALS: BP 106/73
[2018-11-06] MEDS: K and/or MAG REPLACEMENT MC SCH (08:00)
--- NOTE | 2018-11-06 11:19 | NUR ---
pt yelling 'help, help! nurse help'. I asked pt what he needed help with and he stated 'I need help breathing'. I sat the pt up in bed and instructed him to take deep breaths. His O2 saturation was 94% on room air. After sitting up pt stated that he felt better and wanted to lay back down. Will continue to monitor.
[2018-11-06 12:00] VITALS: BP 108/70
--- NOTE | 2018-11-06 18:21 | NUR ---
Problems reprioritized. Patient report given, questions answered & plan of care reviewed with THOMAS Lund.
[2018-11-06 20:00] VITALS: BP 127/90
[2018-11-06] MEDS: temazepam 15mg capsule PO PRN (20:59)
[2018-11-06] MEDS: HYDROcodone/acetaminophen 5mg/325mg tablet PO PRN (21:00)
--- NOTE | 2018-11-06 22:49 | NUR ---
Patient in room [facility] 356. I have received report from THOMAS Wilson and had the opportunity to ask questions and assume patient care. Addendum: 11/06/18 at 2254 by Ashely Gill RN Amended: Links added.
[2018-11-07] MEDS: HYDROcodone/acetaminophen 5mg/325mg tablet PO PRN (04:43)
--- NOTE | 2018-11-07 06:07 | NUR ---
Problems reprioritized. Patient report given, questions answered & plan of care reviewed with THOMAS Mcclendon. Addendum: 11/07/18 at 0607 by Ashely Gill RN Amended: Links added.
[2018-11-07 07:00] VITALS: BP 121/82
[2018-11-07] MEDS: K and/or MAG REPLACEMENT MC SCH (08:00)
[2018-11-07] MEDS: lactobacillus rhamnosus 10,000 MMU CELLS/CAPSULE PO SCH ×2 (09:12→19:57)
[2018-11-07] MEDS: OLANZapine 2.5MG tablet PO SCH (09:13)
[2018-11-07] MEDS: cefuroxime axetil 250mg tablet PO SCH ×2 (09:14→19:57)
[2018-11-07] MEDS: potassium Cl 20 mEq SR tablet PO SCH (09:14)
[2018-11-07] MEDS: levoTHYROXINE 75mcg tablet PO SCH (09:14)
[2018-11-07] MEDS: heparin, porcine 5000 units/ml vial SQ SCH ×2 (09:16→19:56)
[2018-11-07] MEDS: mineral oil/petrolatum, white cream 113gm jar TP SCH ×2 (09:16→19:56)
[2018-11-07] MEDS: hydrocortisone 2.5% cream 28.4gm TP SCH ×2 (09:16→19:56)
[2018-11-07 11:00] VITALS: BP 129/87
[2018-11-07] MEDS: lactose-reduced food (Ensure High Protein) 237ml bottle PO SCH (18:00)
--- NOTE | 2018-11-07 18:17 | NUR ---
Pt. in stable condition, in room sitting in bed with bed alarm on. Gave report Ashely GUZMAN.
[2018-11-07] MEDS: temazepam 15mg capsule PO PRN (19:57)
[2018-11-07 20:00] VITALS: BP 129/90
[2018-11-07 23:43] VITALS: BP 90/62
--- NOTE | 2018-11-08 06:19 | NUR ---
Problems reprioritized. Patient report given, questions answered & plan of care reviewed with THOMAS Mcclendon. Addendum: 11/08/18 at 0620 by Ashely Gill RN Amended: Links added.
[2018-11-08 07:26] VITALS: BP 98/61
[2018-11-08] MEDS: K and/or MAG REPLACEMENT MC SCH (08:00)
[2018-11-08] MEDS: OLANZapine 2.5MG tablet PO SCH (08:16)
[2018-11-08] MEDS: potassium Cl 20 mEq SR tablet PO SCH (08:16)
[2018-11-08] MEDS: cefuroxime axetil 250mg tablet PO SCH ×2 (08:16→20:22)
[2018-11-08] MEDS: lactobacillus rhamnosus 10,000 MMU CELLS/CAPSULE PO SCH ×2 (08:16→20:25)
[2018-11-08] MEDS: levoTHYROXINE 75mcg tablet PO SCH (08:16)
[2018-11-08] MEDS: lactose-reduced food (Ensure High Protein) 237ml bottle PO SCH ×3 (08:16→18:00)
[2018-11-08] MEDS: heparin, porcine 5000 units/ml vial SQ SCH ×2 (08:17→20:24)
[2018-11-08] MEDS: mineral oil/petrolatum, white cream 113gm jar TP SCH ×2 (08:17→20:28)
[2018-11-08] MEDS: hydrocortisone 2.5% cream 28.4gm TP SCH ×2 (08:17→20:28)
--- NOTE | 2018-11-08 10:35 | NUR ---
Pt. refused to ambulate stating " change my sheets, ambulate... that's not necessary!" Re-approached but pt. kept acting as though he was sleeping. States he did not get any sleep last night and that he is too tired today.
[2018-11-08 11:00] VITALS: BP 96/69
--- NOTE | 2018-11-08 13:22 | NUR ---
PAGER ID: [phone] MESSAGE: [phone] Ace Sidhu Please talk to Justina in case management r/t this patient. Is he still discharging today? if so when? Thank you! Danelle GUZMAN [phone]
[2018-11-08] MEDS: HYDROcodone/acetaminophen 5mg/325mg tablet PO PRN (13:57)
--- NOTE | 2018-11-08 16:35 | NUR ---
PAGER ID: [phone] MESSAGE: PLEASE CALL ME REGAURDING YOUR PATIENT [id number] tHANK YOU! LEONILA Valencia0
--- NOTE | 2018-11-08 16:56 | NUR ---
Pt. to discharge in AM r/t inability to access personal funds at this time of day. pt. is to discharge tomorrow after breakfast. aware discharge is on hold. Pt has clean clothes available for him in his bedroom, to go lunch in unit fridge. Taxi cab to be provided and called by hospital to deliver pt. to the address [address] [place] [address]. client services associate should then be made aware of pt.'s departure at the time of discharge. Will relay this information to oncoming RN during report.
[2018-11-08 18:00] VITALS: BP 101/61
--- NOTE | 2018-11-08 18:41 | NUR ---
Pt. in room, did not get a dinner tray. Jorge Prescott faxing for late tray requests. No other needs at this time besides snacks. Pt. is in stable condition reclined in bed. Gave report to Jorge PRESCOTT.
--- NOTE | 2018-11-08 18:42 | NUR ---
Patient in room [facility] 356. I have received report from THOMAS Mcclendon and had the opportunity to ask questions and assume patient care.
[2018-11-08] MEDS: temazepam 15mg capsule PO PRN (20:22)
[2018-11-09] VITALS: BP 129/86
--- NOTE | 2018-11-09 06:31 | NUR ---
Problems reprioritized. Patient report given, questions answered & plan of care reviewed with THOMAS Vegas.
[2018-11-09 07:00] VITALS: BP 116/75
[2018-11-09] MEDS: K and/or MAG REPLACEMENT MC SCH (08:00)
[2018-11-09] MEDS: hydrocortisone 2.5% cream 28.4gm TP SCH (08:00)
[2018-11-09] MEDS: HYDROcodone/acetaminophen 5mg/325mg tablet PO PRN (08:49)
[2018-11-09] MEDS: heparin, porcine 5000 units/ml vial SQ SCH (08:49)
[2018-11-09] MEDS: lactobacillus rhamnosus 10,000 MMU CELLS/CAPSULE PO SCH (08:49)
[2018-11-09] MEDS: levoTHYROXINE 75mcg tablet PO SCH (08:49)
[2018-11-09] MEDS: potassium Cl 20 mEq SR tablet PO SCH (08:49)
[2018-11-09] MEDS: OLANZapine 2.5MG tablet PO SCH (08:50)
[2018-11-09] MEDS: mineral oil/petrolatum, white cream 113gm jar TP SCH (08:50)
[2018-11-09] MEDS: lactose-reduced food (Ensure High Protein) 237ml bottle PO SCH (08:51)
--- NOTE | 2018-11-09 11:00 | NUR ---
DISCHARGE PUT IN A 0946. PT IS READY TO BE DISCHARGED ON NURSING END. WAITING FOR [facility] TO DELIVER HIS DISCHARGE MEDS
--- NOTE | 2018-11-09 12:32 | NUR ---
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 APS was contacted. SS referral closed. Addendum: 11/09/18 at 1233 by Iris Figueroa SS Amended: Links added.
[2018-11-10] MEDS ORDERED: Permethrin Cream 60gm TP ONE (08:00)
[2018-11-10] MEDS ORDERED: NO HOME MEDS (12:56)
== END 2018-11-09 12:03 | disposition home or self-care (01) | DRG 871 ==
LOC: ER 12:22 → OBSVTOIN 10-29 17:37 → ED HOLD 10-29 17:37 → CMPBEDREQ 10-30 18:49 → SUR 3N 10-30 18:50
PROVIDERS: ADMIT Internal Medicine; ATTEND Hospitalist
PROC: B32T1ZZ Computerized Tomography (CT Scan) of Left Pulmonary Artery using Low Osmolar Contrast (ICD-10-PCS; principal; 2018-10-29)
PROC: B3201ZZ Computerized Tomography (CT Scan) of Thoracic Aorta using Low Osmolar Contrast (ICD-10-PCS; 2018-10-29)
PROC: B32S1ZZ Computerized Tomography (CT Scan) of Right Pulmonary Artery using Low Osmolar Contrast (ICD-10-PCS; 2018-10-29)
DX: A41.9 Sepsis, unspecified organism (principal); G93.41 Metabolic encephalopathy; E43 Unspecified severe protein-calorie malnutrition; N39.0 Urinary tract infection, site not specified; J90 Pleural effusion, not elsewhere classified; F23 Brief psychotic disorder; E87.6 Hypokalemia; J43.9 Emphysema, unspecified; E03.9 Hypothyroidism, unspecified; E83.42 Hypomagnesemia; D64.9 Anemia, unspecified; L30.9 Dermatitis, unspecified; B85.1 Pediculosis due to Pediculus humanus corporis; E83.51 Hypocalcemia; I10 Essential (primary) hypertension; Z60.2 Problems related to living alone; Z79.899 Other long term (current) drug therapy; Z59.0 Homelessness; Z68.21 Body mass index [BMI] 21.0-21.9, adult; Z75.1 Person awaiting admission to adequate facility elsewhere
CPT/HCPCS: 36415; 36600; 71045; 71275; 80048; 80053; 80202; 80305; 80320; 81001; 82803; 83605; 83735; 83880; 84132; 84439; 84443; 85018; 85025; 87040; 87070; 87088; 93005; 93308; 94640; 94760; 96372; 97161; 97530; 99285; G0378; J0696; J1644; J1940; J2270; J3370; J3475; J7030; Q9967

== ENCOUNTER 2018-11-10 05:59 | Emergency (ER) | payer MEDICARE, MEDICAID ==
[~2018-11-10] VITALS: Ht 185.4 cm; Wt 63.0 kg
[~2018-11-10 05:59] MED LIST changes: +HYDR453.3 TP; +LEVO50TA PO; -NO HOME MEDS; +POTA20TA19 PO
[2018-11-10 06:08] VITALS: BP 126/73
[2018-11-10] MEDS ORDERED: normal saline 1000ML IV soln IVB ONE ×2 (06:15→07:40)
[2018-11-10 07:00] LABS: CLARITY,URINE CLEAR (Clear); COLOR,URINE YELLOW (Yellow); GLUCOSE, URINE NEGATIVE (Neg); KETONES,URINE NEGATIVE (Neg); LEUKOCYTE ESTERASE ,URINE NEGATIVE (Neg); NITRITES, URINE NEGATIVE (Neg); OCCULT BLOOD,URINE MODERATE (Neg); PH,URINE 6.5 (4.8-8.0); PROTEIN,URINE NEGATIVE (Neg); UROBILINOGEN,URINE 0.2 E.U/dL (0.2-1.0)
[2018-11-10 07:01] LABS: UA COLLECTION TYPE CLN CATCH MIDSTREAM
[2018-11-10 07:02] LABS: BASOPHILS # (AUTO) 0.1 X10'3 (0-0.2); BASOPHILS % (AUTO) 1.2 % (0-1); EOSINOPHILS % (AUTO) 0.3 % (0-6); HEMATOCRIT 40.8 % (42.0-52.0); HEMOGLOBIN 13.5 g/dl (14.0-17.9); LYMPHOCYTES # (AUTO) 0.9 X10'3 (1.1-4.8); LYMPHOCYTES % (AUTO) 10.6 % (21-51); MEAN CORPUSCULAR HEMOGLOBIN 32.2 PG (27.0-31.0); MEAN CORPUSCULAR VOLUME 97.7 FL (78-98); MEAN PLATELET VOLUME 7.6 FL (7.4-10.4); MONOCYTES # (AUTO) 0.8 X10'3 (0-0.9); NEUTROPHILS % (AUTO) 78.9 % (42-75); PLATELET COUNT 313 X10'3 (140-440); RED BLOOD COUNT 4.17 X10'6 (4.70-6.10); RED CELL DISTRIBUTION WIDTH 16.8 % (11.5-14.5); WHITE BLOOD COUNT 8.9 X10'3 (4.5-11.0)
--- NOTE | 2018-11-10 07:10 | NUR ---
while attempting to get vital signs the pt refused any medical treatment, provider was made aware.
[2018-11-10 07:11] LABS: INR 1.1 INR; PROTHROMBIN TIME 11.4 SECONDS (9.0-12.0)
[2018-11-10 07:13] LABS: BACTERIA,URINE NONE SEEN /HPF (Neg); MUCUS STRANDS NONE SEEN /LPF (Neg); SQUAMOUS EPITHELIAL CELL,UR NONE SEEN /LPF (FEW); WBC,URINE NONE SEEN /HPF (0-4)
[2018-11-10 07:26] LABS: ALANINE AMINOTRANSFERASE 34 U/L (12-78); ALBUMIN 3.2 G/DL (3.4-5.0); ALBUMIN/GLOBULIN RATIO 0.5 (1.1-1.5); ALKALINE PHOSPHATASE 179 IU/L (46-116); ANION GAP 8 (8-16); ASPARTATE AMINO TRANSFERASE 35 U/L (10-37); BILIRUBIN,TOTAL 0.8 MG/DL (0.1-1.0); BLOOD UREA NITROGEN 20 MG/DL (7-18); CALCIUM 9.6 MG/DL (8.5-10.1); CHLORIDE 98 MMOL/L (99-107); GLUCOSE 129 MG/DL (70-104); POTASSIUM 4.1 MMOL/L (3.5-5.1); SODIUM 139 MMOL/L (135-145); TOTAL CARBON DIOXIDE 33.2 MMOL/L (24-32); TOTAL PROTEIN 9.2 G/DL (6.4-8.2); eGFR > 90 ML/MIN
[2018-11-10 07:27] LABS: TROPONIN I 0.04 NG/ML (0.0-0.05)
--- NOTE | 2018-11-10 07:41 | NUR ---
NOTIFIED DR. MYLES ABOUT CRITICAL LAB VALUE ON PATIENT LACTIC ACID: 4.4.
[2018-11-10] MEDS ORDERED: NO HOME MEDS (12:56)
[2018-11-11] MEDS ORDERED: PANT-47 PO (12:25)
[2018-11-11] MEDS ORDERED: ASPI81TA52 PO (12:25)
[2018-11-11] MEDS ORDERED: CEPH500C5 PO (12:25)
[2018-11-11] MEDS ORDERED: PRED10TA23 PO (12:25)
== END 2018-11-10 08:46 | disposition home or self-care (01) ==
LOC: ER 05:59
DX: R00.0 Tachycardia, unspecified (principal); E86.0 Dehydration; E03.9 Hypothyroidism, unspecified; F17.210 Nicotine dependence, cigarettes, uncomplicated; Z79.82 Long term (current) use of aspirin; Z79.2 Long term (current) use of antibiotics; Z79.899 Other long term (current) drug therapy
CPT/HCPCS: 36415; 80053; 81001; 83605; 83880; 84145; 84484; 85025; 85610; 87040; 93005; 96360; 99284; J7030

== ENCOUNTER 2018-11-10 08:47 | Inpatient (IN) | payer MEDICARE, MEDICAID ==
[~2018-11-10] VITALS: Ht 182.9 cm; Wt 77.3 kg
[2018-11-10] MEDS ORDERED: normal saline 1000ML IV soln IVB ONE (09:30)
[2018-11-10] MEDS ORDERED: ipratropium/albuterol 3ml nebule NEB ONE (09:30)
[2018-11-10] MEDS ORDERED: magnesium 2GM in 50ml NS 50 ML IV ONE (09:35)
[2018-11-10] MEDS ORDERED: metoprolol tartrate 25mg tablet PO ONE (09:40)
[2018-11-10] MEDS ORDERED: metoprolol tartrate 1mg/ml inj IV ONE (09:40)
[2018-11-10] MEDS ORDERED: potassium Cl 40MEQ/NS 500ml 500 ML IV PRN ×2 (12:35)
[2018-11-10] MEDS ORDERED: morphine 2 MG/ML inj. syringe IV PRN ×2 (12:35)
[2018-11-10] MEDS ORDERED: magnesium Cl slow-release 64mg tablet PO PRN (12:35)
[2018-11-10] MEDS ORDERED: ondansetron/PF 4mg/2ml inj IV PRN (12:35)
[2018-11-10] MEDS ORDERED: potassium Cl 20 mEq SR tablet PO PRN ×2 (12:35)
[2018-11-10] MEDS ORDERED: HYDROcodone/acetaminophen 10/325mg tab PO PRN (12:35)
[2018-11-10] MEDS ORDERED: HYDROcodone/acetaminophen 5mg/325mg tablet PO PRN (12:35)
[2018-11-10] MEDS ORDERED: bisacodyl 10mg suppository rectal RC PRN (12:35)
[2018-11-10] MEDS ORDERED: magnesium 4gm in 100ml NS 100 ML IV PRN (12:35)
[2018-11-10] MEDS ORDERED: acetaminophen 325mg tablet PO PRN (12:35)
[2018-11-10] MEDS ORDERED: magnesium 2GM in 50ml NS 50 ML IV PRN (12:35)
[2018-11-10] MEDS ORDERED: magnesium hydroxide 30ml (MOM) UD suspension PO PRN (12:35)
[2018-11-10] MEDS ORDERED: mag hydrox/Alum hydrox/simeth 30ml oral suspension PO PRN (12:35)
[2018-11-10] MEDS ORDERED: enoxaparin 80mg/0.8ml syringe SUBCUT SCH (12:45)
[2018-11-10] MEDS ORDERED: ipratropium 0.5 MG/2.5ML nebule IH PRN (12:45)
[2018-11-10] MEDS ORDERED: diltiazem-D5W 125mg/125ml 125 ML IV PRN (12:45)
[2018-11-10] MEDS ORDERED: NO HOME MEDS (12:56)
[2018-11-10] MEDS ORDERED: iohexol 350MG/ML 100ml bottle IV ONE (13:02)
--- NOTE | 2018-11-10 13:08 | NUR ---
pt out to ct with electrician office via [email or web address]
[2018-11-10] MEDS: pantoprazole 40mg Tablet.DR PO SCH (13:50)
[2018-11-10] MEDS: methylPREDNISolone sod succ 125mg/2ml vial IV SCH ×2 (13:50→16:57)
[2018-11-10 14:08] LABS: URINE AMPHETAMINE SCREEN NEGATIVE (Neg); URINE BARBITUATE SCREEN NEGATIVE (Neg); URINE BENZODIAZEPINES SCREEN NEGATIVE (Neg); URINE CANNABINOID SCREEN NEGATIVE (Neg); URINE COCAINE SCREEN NEGATIVE (Neg); URINE METHADONE SCREEN NEGATIVE (Neg); URINE OPIATE SCREEN POSITIVE (Neg); URINE PHENCYCLIDINE SCREEN NEGATIVE (Neg)
[2018-11-10] MEDS: potassium Cl 20mEq in NS 1,000 ML IV SCH ×2 (14:29→22:29)
[2018-11-10] MEDS: CefTRIAXone/D5W-Rocephin 1gm 50 ML IV SCH (14:29)
--- NOTE | 2018-11-10 14:33 | NUR ---
MD AWARE OF THE SBP OF 90
--- NOTE | 2018-11-10 15:10 | NUR ---
Patient in room U 3016. I have received report from SANTI GUZMAN and had the opportunity to ask questions and assume patient care. Addendum: 11/10/18 at 1650 by Julia Solis RN Amended: Links added.
--- NOTE | 2018-11-10 15:38 | NUR ---
Patient arrived to the unit accompanied by ED staff. Patient placed on bedside monitor, vital signs obtained, patient oriented to room and call light, belongings placed at the bedside, and 2 RN skin check completed. No IV currently, Cardizem not running. Will obtain IV access and continue to monitor.
--- NOTE | 2018-11-10 16:35 | NUR ---
PAGER ID: [phone] MESSAGE: [id number] Ace Rivas: BP is low: 72/57, 74/53, 77/57. 250 mL NS bolus started. Cardizem running at 5/hr. Please advise, Thanks, Siria [phone] Addendum: 11/10/18 at 1708 by Siria Alexander RN Received telephone orders to DC cardizem gtt, DC lovenox, start a 2nd 250mL NS bolus, and start Amiodarone gtt.
[2018-11-10] MEDS ORDERED: amiodarone 150mg/dext, iso-os 100 ML IV STA (16:44)
--- NOTE | 2018-11-10 17:07 | NUR ---
PAGER ID: [phone] MESSAGE: [id number] Bhavik Rivasan: 2nd 250mL bolus complete, BP is 87/59. Amiodarone loading dose running as well as 20mEq KCl in NS @ 100mL/hr. Thanks, Siria [phone]
[2018-11-10] MEDS: amiodarone/D5 360MG/200ML BAG 200 ML IV SCH ×3 (17:17→23:30)
--- NOTE | 2018-11-10 18:09 | NUR ---
PAGER ID: [phone] MESSAGE: [id number] Ace Rivas: BP is 94/64 after 500mL bolus. HR in 80's, still A Flutter. Thanks, Siria [phone]
--- NOTE | 2018-11-10 18:10 | NUR ---
Problems reprioritized. Patient report given, questions answered & plan of care reviewed with Zohreh GUZMAN and Samson GUZMAN .
--- NOTE | 2018-11-10 18:10 | NUR ---
PAGER ID: [phone] MESSAGE: [id number] Ace Rivas: BP is 94/64 after 500mL bolus. HR in 80's, still A Flutter. Thanks, Siria [phone]
--- NOTE | 2018-11-10 18:20 | NUR ---
Dr. Wright aware of SBP in the Addendum: 11/10/18 at 1820 by Siria Alexander RN Continue Amiodarone
--- NOTE | 2018-11-10 18:21 | NUR ---
[place] documentation: I have reviewed and agree with all interventions, assessments performed and documented by Leeanna GUZMAN. [place] Medication Administration: For this medication-pass time frame, all medication were reviewed, dispensed, administered and documented per hospital policy by Leeanna GUZMAN.
[2018-11-10 18:30] VITALS: BP 91/61
[2018-11-10 19:30] VITALS: BP 98/65
--- NOTE | 2018-11-10 20:05 | NUR ---
Paged Gayle for order for bedside sitter. Page Sent PAGER ID: [phone] MESSAGE: Re: Pt. Ace Rob U RM 3016-B. Pt keeps taking off vital sign equipment and nasal canula. Unable to obtain necessary VS for frequent monitoring as he is on a Amio drip. Requesting an order for sitter at bedside. Gabriela GUZMAN [phone] ([phone] character message out of a maximum of [phone])
[2018-11-10] MEDS: docusate sod 100mg capsule PO SCH (20:06)
[2018-11-10 21:00] VITALS: BP 92/59
--- NOTE | 2018-11-10 21:07 | NUR ---
Dr. Araujo returned call at 2019 and gave verbal order for bedside sitter if needed. THOMAS Ochoa
[2018-11-10 23:00] VITALS: BP 90/62
[2018-11-11 01:00] VITALS: BP 99/69
[2018-11-11] MEDS: methylPREDNISolone sod succ 125mg/2ml vial IV SCH ×2 (01:00→08:00)
[2018-11-11] MEDS: enoxaparin 80mg/0.8ml syringe SUBCUT SCH ×2 (02:42→14:00)
[2018-11-11] MEDS: potassium Cl 20mEq in NS 1,000 ML IV SCH (02:48)
[2018-11-11 03:00] VITALS: BP 107/72
[2018-11-11 05:15] VITALS: BP 106/67
[2018-11-11 06:00] VITALS: BP 119/74
[2018-11-11 06:07] LABS: BASOPHILS % (AUTO) 0.3 % (0-1); EOSINOPHILS % (AUTO) 0 % (0-6); HEMATOCRIT 31.5 % (42.0-52.0); HEMOGLOBIN 10.2 g/dl (14.0-17.9); LYMPHOCYTES # (AUTO) 0.5 X10'3 (1.1-4.8); LYMPHOCYTES % (AUTO) 13.6 % (21-51); MEAN CORPUSCULAR HEMOGLOBIN 31.9 PG (27.0-31.0); MEAN CORPUSCULAR HGB CONC 32.2 g/dL (33.0-36.5); MEAN PLATELET VOLUME 7.6 FL (7.4-10.4); MONOCYTES # (AUTO) 0.1 X10'3 (0-0.9); MONOCYTES % (AUTO) 3.1 % (2-12); NEUTROPHILS # (AUTO) 3.2 X10'3 (1.8-7.7); PLATELET COUNT 250 X10'3 (140-440); RED BLOOD COUNT 3.19 X10'6 (4.70-6.10); RED CELL DISTRIBUTION WIDTH 17.6 % (11.5-14.5); WHITE BLOOD COUNT 3.9 X10'3 (4.5-11.0)
[2018-11-11 06:38] LABS: ALANINE AMINOTRANSFERASE 31 U/L (12-78); ALBUMIN 2.4 G/DL (3.4-5.0); ALBUMIN/GLOBULIN RATIO 0.5 (1.1-1.5); ALKALINE PHOSPHATASE 137 IU/L (46-116); ANION GAP 5 (8-16); ASPARTATE AMINO TRANSFERASE 28 U/L (10-37); BILIRUBIN,TOTAL 0.4 MG/DL (0.1-1.0); BLOOD UREA NITROGEN 16 MG/DL (7-18); BUN/CREATININE RATIO 30.2 (5.4-32.0); CALCIUM 8.1 MG/DL (8.5-10.1); CHLORIDE 104 MMOL/L (99-107); CREATININE 0.53 MG/DL (0.60-1.10); GLUCOSE 136 MG/DL (70-104); POTASSIUM 4.6 MMOL/L (3.5-5.1); SODIUM 138 MMOL/L (135-145); TOTAL CARBON DIOXIDE 29.3 MMOL/L (24-32); TOTAL PROTEIN 7.1 G/DL (6.4-8.2); eGFR > 90 ML/MIN
[2018-11-11] MEDS: pantoprazole 40mg Tablet.DR PO SCH (07:30)
[2018-11-11] MEDS ORDERED: normal saline 1000ml 1,000 ML IV SCH (07:40)
[2018-11-11] MEDS: docusate sod 100mg capsule PO SCH (08:00)
[2018-11-11] MEDS: CefTRIAXone/D5W-Rocephin 1gm 50 ML IV SCH (08:00)
[2018-11-11] MEDS ORDERED: K and/or MAG REPLACEMENT MC SCH (08:00)
[2018-11-11] MEDS ORDERED: nicotine 14mg patch - 24hr TD SCH (08:00)
--- NOTE | 2018-11-11 08:25 | NUR ---
Informed MD Wright of patient refusing medications and hostile, non compliant behavior
--- NOTE | 2018-11-11 10:05 | NUR ---
PAGER ID: [phone] MESSAGE: [address] BP 121/71. amanda [phone]
[2018-11-11 11:00] VITALS: BP 130/83
[2018-11-11] MEDS ORDERED: CEPH500C5 PO (12:25)
[2018-11-11] MEDS ORDERED: ASPI81TA52 PO (12:25)
[2018-11-11] MEDS ORDERED: PRED10TA23 PO (12:25)
[2018-11-11] MEDS ORDERED: PANT-47 PO (12:25)
--- NOTE | 2018-11-11 14:00 | NUR ---
REVIEWED PAPER HANDOUT REGARDING REFERRALS FOR HOUSING AND FOOD GIVEAWAYS. PT REFUSED PAPER WOULD NOT EVEN ALLOW ME TO FOLD IT UP AND PLACE IT IN HIS COAT POCKET. Addendum: 11/11/18 at 1446 by Julia Solis RN Amended: Links added.
--- NOTE | 2018-11-11 14:07 | NUR ---
ALL WRITTEN AND VERBAL ORDERS FOR D/C REVIEWED WITH PT. PT STATED HE DID NOT WANT THE PAPERS TO TAKE WITH HIM. I REVIEWED AGAIN THE NEED FOR AT LEAST THE MEDICATION SCHEDULE. PT STATED HE WAS NOT GOING TO TAKE ANY MEDICATIONS ANYWAY. HE SAID, "I DON'T TAKE MEDS". I SAID TO HIM, "SO YOU ARE REFUSING YOUR MEDICATIONS THAT [facility] IS BRING YOU?" " YES, I REFUSE", HE SAID. WE REVIEWED D/C RIGHTS. PAPERS SIGNED. PT LEFT HOSPITAL VIA W/C WITH BRANCH OFFICE MANAGER TO BUS STOP. PT HAD ALL BELONGINGS INCLUDING, BUS PASS, WALKER, COAT, SHOES AND CLOTHING. Addendum: 11/11/18 at 1423 by Julia Solis RN Amended: Links added.
--- NOTE | 2018-11-11 14:29 | NUR ---
PAGER ID: [phone] MESSAGE: [phone] MEENA HAS LEFT THE HOSPITAL AND IS WAITING FOR A BUS. PT REFUSED TO WAIT FOR ANY MEDICATIONS HE STATED, "I DONT TAKE MEDICINE". JULIA CARMEN Addendum: 11/11/18 at 1429 by Julia Solis RN Amended: Links added.
== END 2018-11-11 14:15 | disposition home or self-care (01) | DRG 191 ==
LOC: ER 08:47 → PCU 3S 16:20 → CMPBEDREQ 20:17
PROVIDERS: ADMIT Internal Medicine; ATTEND Internal Medicine
PROC: B32T1ZZ Computerized Tomography (CT Scan) of Left Pulmonary Artery using Low Osmolar Contrast (ICD-10-PCS; principal; 2018-11-10)
PROC: B3201ZZ Computerized Tomography (CT Scan) of Thoracic Aorta using Low Osmolar Contrast (ICD-10-PCS; 2018-11-10)
PROC: B32S1ZZ Computerized Tomography (CT Scan) of Right Pulmonary Artery using Low Osmolar Contrast (ICD-10-PCS; 2018-11-10)
DX: J44.1 Chronic obstructive pulmonary disease with (acute) exacerbation (principal); I48.92 Unspecified atrial flutter; E87.2 Acidosis; E03.9 Hypothyroidism, unspecified; E86.0 Dehydration; I95.2 Hypotension due to drugs; T46.1X5A Adverse effect of calcium-channel blockers, initial encounter; Z60.2 Problems related to living alone; F17.210 Nicotine dependence, cigarettes, uncomplicated; K21.9 Gastro-esophageal reflux disease without esophagitis; K29.70 Gastritis, unspecified, without bleeding; M46.40 Discitis, unspecified, site unspecified; Z79.01 Long term (current) use of anticoagulants; Z79.899 Other long term (current) drug therapy; Z91.14 Patient's other noncompliance with medication regimen; Z59.0 Homelessness; Z71.6 Tobacco abuse counseling; Y92.238 Other place in hospital as the place of occurrence of the external cause
CPT/HCPCS: 36415; 71045; 71275; 80053; 80305; 80320; 83605; 83735; 85025; 87070; 93005; 94640; 94760; 96365; 96366; 96367; 96372; 96375; 99285; G0378; J0282; J0696; J1650; J2270; J2930; J3475; J3490; J7030; Q9967

== ENCOUNTER 2018-11-20 06:16 | Emergency (ER) | payer MEDICARE, MEDICAID ==
[~2018-11-20] VITALS: Ht 185.4 cm; Wt 75.0 kg
[~2018-11-20 06:16] MED LIST changes: +ASPI81TA52 PO; -HYDR453.3 TP; -LEVO50TA PO; +PANT-47 PO; -POTA20TA19 PO; +PRED10TA23 PO
--- NOTE | 2018-11-20 06:19 | NUR ---
bib ems with abd pain and sob. Seen at [facility] ER yesterday and dc'd. Called for ems from [facility], after dc from [facility] for persistent abd pain.
[2018-11-20 06:58] LABS: CLARITY,URINE CLEAR (Clear); COLOR,URINE YELLOW (Yellow); GLUCOSE, URINE NEGATIVE (Neg); KETONES,URINE NEGATIVE (Neg); LEUKOCYTE ESTERASE ,URINE NEGATIVE (Neg); NITRITES, URINE NEGATIVE (Neg); OCCULT BLOOD,URINE SMALL (Neg); PROTEIN,URINE TRACE mg/dl (Neg); UROBILINOGEN,URINE 0.2 E.U/dL (0.2-1.0)
[2018-11-20 06:59] LABS: UA COLLECTION TYPE VOIDED
[2018-11-20 07:10] LABS: BACTERIA,URINE NONE SEEN /HPF (Neg); MUCUS STRANDS FEW /LPF (Neg); SQUAMOUS EPITHELIAL CELL,UR NONE SEEN /LPF (FEW); WBC,URINE 0-4 /HPF (0-4)
[2018-11-20 07:54] LABS: BASOPHILS # (AUTO) 0.1 X10'3 (0-0.2); BASOPHILS % (AUTO) 0.6 % (0-1); EOSINOPHILS # (AUTO) 0.1 X10'3 (0-0.9); EOSINOPHILS % (AUTO) 0.9 % (0-6); HEMATOCRIT 39.8 % (42.0-52.0); HEMOGLOBIN 13.1 g/dl (14.0-17.9); LYMPHOCYTES # (AUTO) 1.5 X10'3 (1.1-4.8); LYMPHOCYTES % (AUTO) 18.9 % (21-51); MEAN CORPUSCULAR HEMOGLOBIN 32.2 PG (27.0-31.0); MEAN CORPUSCULAR HGB CONC 32.8 g/dL (33.0-36.5); MEAN CORPUSCULAR VOLUME 98.1 FL (78-98); MEAN PLATELET VOLUME 7.3 FL (7.4-10.4); MONOCYTES # (AUTO) 1.3 X10'3 (0-0.9); NEUTROPHILS % (AUTO) 62.6 % (42-75); PLATELET COUNT 400 X10'3 (140-440); RED BLOOD COUNT 4.06 X10'6 (4.70-6.10); RED CELL DISTRIBUTION WIDTH 17.1 % (11.5-14.5); WHITE BLOOD COUNT 7.9 X10'3 (4.5-11.0)
[2018-11-20 08:20] LABS: ALANINE AMINOTRANSFERASE 30 U/L (12-78); ALBUMIN 2.8 G/DL (3.4-5.0); ALBUMIN/GLOBULIN RATIO 0.6 (1.1-1.5); ALKALINE PHOSPHATASE 143 IU/L (46-116); ANION GAP 1 (8-16); ASPARTATE AMINO TRANSFERASE 21 U/L (10-37); BILIRUBIN,TOTAL 0.5 MG/DL (0.1-1.0); BLOOD UREA NITROGEN 25 MG/DL (7-18); BUN/CREATININE RATIO 35.7 (5.4-32.0); CALCIUM 8.4 MG/DL (8.5-10.1); CHLORIDE 98 MMOL/L (99-107); GLUCOSE 70 MG/DL (70-104); LIPASE 64 U/L (73-393); SODIUM 138 MMOL/L (135-145); TOTAL CARBON DIOXIDE 38.7 MMOL/L (24-32); TOTAL PROTEIN 7.3 G/DL (6.4-8.2); eGFR > 90 ML/MIN
[2018-11-20 08:22] LABS: POTASSIUM 3.8 MMOL/L (3.5-5.1)
[2018-11-20 09:22] VITALS: BP 110/69
== END 2018-11-20 09:26 | disposition home or self-care (01) ==
LOC: ER 06:17
DX: R10.13 Epigastric pain (principal); R10.84 Generalized abdominal pain; E03.9 Hypothyroidism, unspecified; F17.210 Nicotine dependence, cigarettes, uncomplicated; Z60.2 Problems related to living alone; Z79.82 Long term (current) use of aspirin; Z79.899 Other long term (current) drug therapy
CPT/HCPCS: 36415; 80053; 81001; 83690; 85025; 99283

== ENCOUNTER 2018-12-09 17:33 | Emergency (ER) | payer MEDICARE, MEDICAID, OTHER ==
[~2018-12-09] VITALS: Ht 185.4 cm; Wt 75.0 kg
[~2018-12-09 17:33] MED LIST changes: +APIX5TAB3 PO; -ASPI81TA52 PO; +DILT180C66 PO; +FAMO20TA8 PO; +KETO15CR2 TP; -PANT-47 PO; -PRED10TA23 PO; +PRED20TA PO
[2018-12-09 17:35] VITALS: BP 143/84
[2018-12-09] MEDS ORDERED: aspirin 81mg tab.chew PO ONE (17:35)
[2018-12-09 18:04] LABS: BASOPHILS % (AUTO) 0.2 % (0-1); EOSINOPHILS % (AUTO) 0 % (0-6); HEMOGLOBIN 13.3 g/dl (14.0-17.9); LYMPHOCYTES # (AUTO) 0.3 X10'3 (1.1-4.8); LYMPHOCYTES % (AUTO) 6.1 % (21-51); MEAN CORPUSCULAR HGB CONC 33.3 g/dL (33.0-36.5); MEAN CORPUSCULAR VOLUME 99.1 FL (78-98); MEAN PLATELET VOLUME 6.7 FL (7.4-10.4); MONOCYTES # (AUTO) 0.4 X10'3 (0-0.9); MONOCYTES % (AUTO) 8.4 % (2-12); NEUTROPHILS # (AUTO) 4.4 X10'3 (1.8-7.7); NEUTROPHILS % (AUTO) 85.3 % (42-75); PLATELET COUNT 379 X10'3 (140-440); RED BLOOD COUNT 4.03 X10'6 (4.70-6.10); RED CELL DISTRIBUTION WIDTH 16.3 % (11.5-14.5); WHITE BLOOD COUNT 5.1 X10'3 (4.5-11.0)
[2018-12-09 18:29] LABS: INR 1.1 INR; PARTIAL THROMBOPLASTIN TIME 28 SECONDS (22-32)
[2018-12-09 18:33] LABS: ALANINE AMINOTRANSFERASE 42 U/L (12-78); ALBUMIN 3.2 G/DL (3.4-5.0); ALBUMIN/GLOBULIN RATIO 0.7 (1.1-1.5); ALKALINE PHOSPHATASE 153 IU/L (46-116); ANION GAP 2 (8-16); ASPARTATE AMINO TRANSFERASE 20 U/L (10-37); BILIRUBIN,TOTAL 0.4 MG/DL (0.1-1.0); BLOOD UREA NITROGEN 20 MG/DL (7-18); BUN/CREATININE RATIO 35.1 (5.4-32.0); CALCIUM 8.6 MG/DL (8.5-10.1); CHLORIDE 95 MMOL/L (99-107); CREATININE 0.57 MG/DL (0.60-1.10); GLUCOSE 131 MG/DL (70-104); POTASSIUM 4.4 MMOL/L (3.5-5.1); SODIUM 130 MMOL/L (135-145); TOTAL CARBON DIOXIDE 33.4 MMOL/L (24-32); TOTAL PROTEIN 7.7 G/DL (6.4-8.2); eGFR > 90 ML/MIN
--- NOTE | 2018-12-09 21:13 | NUR ---
CALLED [employer] AT 21:13 FOR A RIDE TO [facility]
== END 2018-12-09 21:22 | disposition home or self-care (01) ==
LOC: ER 17:34
DX: R07.89 Other chest pain (principal); I48.91 Unspecified atrial fibrillation; E03.9 Hypothyroidism, unspecified; Z79.899 Other long term (current) drug therapy; Z59.0 Homelessness; Z60.2 Problems related to living alone
CPT/HCPCS: 36415; 71045; 80053; 84484; 85025; 85610; 85730; 93005; 99284